=== PATIENT | female | born 1975 | race Two or more races ===

== ENCOUNTER 2023-05-27 15:06 | Emergency (ER) | payer MEDICAID ==
[~2023-05-27] VITALS: Ht 157.5 cm; Wt 57.0 kg
[2023-05-27 15:08] VITALS: O2SAT 99
[2023-05-27 16:09] LABS: BASOPHILS % 0.6 % (0.0-2.0); EOSINOPHILS % 1.7 % (0.0-5.0); HEMATOCRIT. 38.6 % (36.0-48.0); HEMOGLOBIN. 13.3 g/dL (12.0-16.0); MEAN CORPUSCULAR HEMOGLOBIN 31.5 pg (28.0-32.0); MEAN CORPUSCULAR VOLUME 91.6 fL (81.0-99.0); MEAN PLATELET VOLUME 7.8 fl (7.4-10.4); MONOCYTES % 4.6 % (2.0-8.0); NEUTROPHILS % 73.1 % (40.0-76.0); PLATELET 349 x1000/uL (130-400); RED BLOOD CELL COUNT 4.22 mill/uL (4.2-5.4); RED CELL DISTRIBUTION WIDTH 13.1 % (11.6-14.6)
[2023-05-27 16:17] LABS: CHLORIDE 109 mEq/L (98-107)
[2023-05-27 16:25] LABS: HCG SCREEN NEGATIVE
[2023-05-27 17:44] VITALS: BP 119/78; PULSE 60; RESP 18; TEMP 98.8
== END 2023-05-27 17:45 | disposition home or self-care (01) ==
LOC: ER 15:20
DX: R07.89 Other chest pain (principal); F41.9 Anxiety disorder, unspecified
CPT/HCPCS: 36415; 71046; 80053; 84484; 84703; 85025; 93005; 99285

== ENCOUNTER 2023-06-14 15:42 | Emergency (ER) | payer MEDICAID ==
[~2023-06-14] VITALS: Ht 160 cm; Wt 58.0 kg
[2023-06-14 15:45] VITALS: TEMP 98.5; O2SAT 100
[2023-06-14 17:15] VITALS: BP 123/75; PULSE 60; RESP 20
[2023-06-14] MEDS ORDERED: IBUPROFEN 400MG TABLET PO ONE (17:15)
[2023-06-14] MEDS ORDERED: IBUP-2028 MT (17:45)
== END 2023-06-14 18:08 | disposition home or self-care (01) ==
LOC: ER 15:42
DX: S69.92XA Unspecified injury of left wrist, hand and finger(s), initial encounter (principal); F41.9 Anxiety disorder, unspecified; G89.11 Acute pain due to trauma; Y08.89XA Assault by other specified means, initial encounter; Y93.89 Activity, other specified; Y92.89 Other specified places as the place of occurrence of the external cause; Y99.8 Other external cause status
CPT/HCPCS: 73110; 73120; 81025; 99284

== ENCOUNTER 2023-06-19 06:57 | Emergency (ER) | payer MEDICAID ==
[~2023-06-19] VITALS: Ht 162.6 cm; Wt 65.6 kg
[~2023-06-19 06:57] MED LIST: IBUP-2028 MT
[2023-06-19 07:10] VITALS: TEMP 98.8; O2SAT 100
[2023-06-19 08:32] LABS: CLARITY URINE CLEAR (CLEAR); COLOR URINE YELLOW (YELLOW); KETONES URINE NEGATIVE (NEGATIVE); LEUKOCYTE ESTERASE URINE TRACE (NEGATIVE); NITRITE URINE NEGATIVE (NEGATIVE); OCCULT BLOOD URINE NEGATIVE (NEGATIVE); PH URINE 6.5 (4.5-8.0); PROTEIN URINE NEGATIVE (NEGATIVE); SPECIFIC GRAVITY URINE 1.008 (1.005-1.030); UROBILINOGEN URINE 0.2 E.U./dL (0.2-1.0)
[2023-06-19] MEDS ORDERED: KETOROLAC 30MG/ML VIAL IV STA (11:08)
[2023-06-19] MEDS ORDERED: SODIUM CHLORIDE 0.9% 1,000 ML IV ONE (11:15)
[2023-06-19 11:24] LABS: BASOPHILS % 0.5 % (0.0-2.0); EOSINOPHILS % 0.6 % (0.0-5.0); HEMATOCRIT. 35.5 % (36.0-48.0); HEMOGLOBIN. 12.4 g/dL (12.0-16.0); LYMPHOCYTES % 32.9 % (20.0-50.0); MEAN CORPUSCULAR HEMOGLOBIN 31.9 pg (28.0-32.0); MEAN CORPUSCULAR VOLUME 91.8 fL (81.0-99.0); MEAN PLATELET VOLUME 7.4 fl (7.4-10.4); MONOCYTES % 4.3 % (2.0-8.0); NEUTROPHILS % 61.7 % (40.0-76.0); PLATELET 312 x1000/uL (130-400); RED BLOOD CELL COUNT 3.87 mill/uL (4.2-5.4); RED CELL DISTRIBUTION WIDTH 13.4 % (11.6-14.6)
[2023-06-19 11:37] LABS: CHLORIDE 111 mEq/L (98-107)
[2023-06-19] MEDS ORDERED: KETOROLAC 30MG/ML VIAL IV NR (13:15)
[2023-06-19] MEDS ORDERED: KETOROLAC 15MG/ML VIAL IV ONE (13:15)
[2023-06-19] MEDS ORDERED: NITR-87 MT (14:19)
[2023-06-19] MEDS ORDERED: PHEN-815 MT (14:19)
[2023-06-19 14:32] VITALS: BP 130/76; PULSE 75; RESP 15
== END 2023-06-19 14:37 | disposition home or self-care (01) ==
LOC: ER 08:02
DX: R10.2 Pelvic and perineal pain (principal); R30.0 Dysuria; Z88.8 Allergy status to other drugs, medicaments and biological substances
CPT/HCPCS: 80053; 81003; 81025; 85025; 87210; 36415; 74176; 96361; 96374; 99285; J1885; J7030; Z7610 ×3